=== PATIENT | male | born 2000 | race Asian ===

== ENCOUNTER 2021-11-28 21:18 | Emergency (ER) | payer OTHER, MEDICAID, SELFPAY ==
[2021-11-28 21:41] VITALS: BP 116/61; PULSE 98; RESP 20; TEMP 36.1; O2SAT 95
[2021-11-28 21:49] VITALS: RESP 20
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
[2021-11-28] MEDS: Ibuprofen 600 MG TAB PO (22:18)
== END 2021-11-28 22:23 | disposition home or self-care (01) ==
PROVIDERS: Emergency Provider Physician Assistant
DX: S00.03XA Contusion of scalp, initial encounter (principal); M25.552 Pain in left hip; V49.50XA Passenger injured in collision with unspecified motor vehicles in traffic accident, initial encounter
CPT/HCPCS: 99282; 99283